=== PATIENT | male | born 1940 | race Two or more races ===

== ENCOUNTER 2019-05-27 20:53 | Inpatient (IN) | payer MEDICARE, MEDICAID ==
[~2019-05-27] VITALS: Ht 177.8 cm; Wt 86.6 kg
[2019-05-27] MEDS ORDERED: ZOLPIDEM TARTRATE 5 MG TABLET PO PRN (21:00)
[2019-05-27] MEDS ORDERED: Z GUARD REMEDY 2 OZ OINT TP PRN (21:00)
[2019-05-27] MEDS ORDERED: MAG HYDROX/AL HYDROX/SIMETH 30 ML UDC PO PRN (21:00)
[2019-05-27] MEDS ORDERED: HYDROCODONE/APAP 5/325MG 1 EACH TABLET PO PRN (21:00)
[2019-05-27] MEDS ORDERED: ACETAMINOPHEN 325 MG TABLET PO PRN (21:00)
[2019-05-27] MEDS ORDERED: MAGNESIUM HYDROXIDE 30 ML UDC PO PRN (21:00)
[2019-05-27] MEDS ORDERED: ONDANSETRON HCL/PF 4 MG/2 ML VIAL IVP PRN (21:00)
--- NOTE | 2019-05-27 21:15 | NUR ---
RN OPENING NOTE PATIENT ARRIVED TO UNIT WITH FAMILY. PATIENT IS AMBULATORY WITH MINIMAL ASSISTANCE. A&O X4. ABLE TO MAKE NEEDS KNOWN. BREATHING IS EVEN AND NON LABORED. NO SOB NOTED AT THIS TIME. SMALL RED SCABS NOTED ON RIGHT LOWER LEG, OTHERWISE SKIN IS INTACT. BED IS LOWERED TO LOWEST POSITION FOR SAFETY. CALL LIGHT IS WITHIN EASY REACH. WILL CONTINUE TO MONITOR.
[2019-05-27 21:19] VITALS: BP 178/79
[2019-05-27] MEDS ORDERED: DEXTROSE 50%-WATER 50 ML DISP.SYRIN IV PRN (21:30)
[2019-05-27] MEDS: INSULIN REGULAR, HUMAN 100 UNIT/ML 3 ML VIAL SQ PRN (21:47)
[2019-05-27] MEDS ORDERED: BLOOD SUGAR DIAGNOSTIC 1 EACH STRIP IN STA (21:48)
[2019-05-27 21:49] LABS: BASOPHILS # (AUTO) 0.1 /CMM (0.0-0.2); BASOPHILS % (AUTO) 0.9 % (0.0-2.0); EOSINOPHILS % (AUTO) 3.6 % (0.0-6.0); HEMATOCRIT 39 % (39-51); HEMOGLOBIN 13.2 g/dL (13.5-17.5); LYMPHOCYTES # (AUTO) 1.6 /CMM (0.8-4.8); LYMPHOCYTES % (AUTO) 22.9 % (20.0-44.0); MEAN CORPUSCULAR HGB CONC 33 g/dl (31.0-36.0); MEAN CORPUSCULAR VOLUME 86 fL (80-96); MONOCYTES # (AUTO) 0.5 /CMM (0.1-1.30); MONOCYTES % (AUTO) 7.7 % (2.0-12.0); NEUTROPHILS # (AUTO) 4.6 /CMM (1.8-8.9); NEUTROPHILS % (AUTO) 64.9 % (43.0-81.0); PLATELET COUNT (AUTO) 211 /CMM (150-450); RED BLOOD CELL COUNT(AUTO) 4.56 MIL/uL (4.5-6.0); WHITE BLOOD COUNT (AUTO) 7.1 K/uL (4.3-11.0)
[2019-05-27] MEDS ORDERED: BLOOD SUGAR DIAGNOSTIC 1 EACH STRIP IN SCH (22:00)
[2019-05-27 22:10] LABS: ALBUMIN 3.4 g/dL (3.4-5.0); BILIRUBIN,TOTAL 0.3 mg/dL (0.2-1.0); CALCIUM, SERUM 8.7 mg/dL (8.5-10.1); CREATININE 1.2 mg/dL (0.6-1.3); POTASSIUM 4.9 mmol/L (3.5-5.1); TOTAL PROTEIN, SERUM 6.7 g/dL (6.4-8.2)
[2019-05-27 22:31] LABS: THYROID STIMULATING HORMONE 4.219 uIU/mL (0.358-3.74)
[2019-05-28] MEDS ORDERED: BISACODYL (5 MG) 5 MG TABLET.DR PO PRN
[2019-05-28] MEDS ORDERED: BLOOD SUGAR DIAGNOSTIC 1 EACH STRIP IN SCH
[2019-05-28] MEDS ORDERED: SENNOSIDES 8.6 MG TABLET PO PRN
[2019-05-28] MEDS: BLOOD SUGAR DIAGNOSTIC 1 EACH STRIP IN SCH ×3 (00:20→12:39)
[2019-05-28] MEDS: INSULIN REGULAR, HUMAN 100 UNIT/ML 3 ML VIAL SQ PRN ×2 (00:23→12:41)
[2019-05-28] MEDS ORDERED: ICOS1CAP PO (01:51)
[2019-05-28] MEDS ORDERED: PITA4TAB PO (01:55)
[2019-05-28] MEDS ORDERED: ESOM40CA PO (02:21)
[2019-05-28] MEDS ORDERED: RAMI10CA69 PO (02:45)
[2019-05-28] MEDS ORDERED: GABA-532 PO (03:35)
[2019-05-28] MEDS ORDERED: AMLO2.5T4 PO (03:39)
[2019-05-28] MEDS ORDERED: ASPI-1152 PO (03:41)
[2019-05-28] MEDS ORDERED: SENN-168 PO (03:42)
[2019-05-28] MEDS ORDERED: CLOP75TA15 PO (03:47)
[2019-05-28] MEDS ORDERED: BISA-79 PO (03:49)
[2019-05-28] MEDS ORDERED: CHOL200026 PO ×2 (03:51→03:54)
[2019-05-28 04:00] VITALS: BP 151/68
--- NOTE | 2019-05-28 05:30 | NUR ---
RN NOTE BLOOD SUGAR IS 124 MG/DL AT THIS TIME. NO INSULIN COVERAGE PER SLIDING SCALE. WILL CONTINUE TO MONITOR.
--- NOTE | 2019-05-28 06:47 | NUR ---
ERASTO RN CLOSING NOTE PATIENT IS IN BED RESTING. BREATHING IS EVEN AND NON LABORED. NO SOB NOTED. A&O X4. IN NO APPARENT DISTRESS NOTED. BED IS LOWERED TO LOWEST POSITION AND LOCKED FOR SAFETY. PATIENT IS KEPT CLEAN, DRY, AND COMFORTABLE. CALL LIGHT IS WITHIN EASY REACH. WILL ENDORSE TO AM SHIFT RN FOR ELVA.
[2019-05-28 07:32] LABS: BASOPHILS % (AUTO) 0.8 % (0.0-2.0); EOSINOPHILS % (AUTO) 4.4 % (0.0-6.0); HEMATOCRIT 41 % (39-51); HEMOGLOBIN 13.9 g/dL (13.5-17.5); LYMPHOCYTES # (AUTO) 1.4 /CMM (0.8-4.8); LYMPHOCYTES % (AUTO) 22.6 % (20.0-44.0); MEAN CORPUSCULAR HGB CONC 34 g/dl (31.0-36.0); MEAN CORPUSCULAR VOLUME 85 fL (80-96); MONOCYTES # (AUTO) 0.5 /CMM (0.1-1.30); MONOCYTES % (AUTO) 8.5 % (2.0-12.0); NEUTROPHILS % (AUTO) 63.7 % (43.0-81.0); PLATELET COUNT (AUTO) 207 /CMM (150-450); RED BLOOD CELL COUNT(AUTO) 4.76 MIL/uL (4.5-6.0); WHITE BLOOD COUNT (AUTO) 6.3 K/uL (4.3-11.0)
[2019-05-28 07:47] LABS: CALCIUM, SERUM 8.9 mg/dL (8.5-10.1); PHOSPHORUS 4.3 mg/dL (2.5-4.9); POTASSIUM 4.8 mmol/L (3.5-5.1)
[2019-05-28 08:00] VITALS: BP 160/57
[2019-05-28] MEDS: GABAPENTIN 100 MG CAPSULE PO SCH ×2 (08:38→12:45)
[2019-05-28] MEDS ORDERED: RAMIPRIL 5 MG CAPSULE PO SCH ×2 (09:00)
[2019-05-28] MEDS ORDERED: CHOLECALCIFEROL 1,000 UNIT TABLET (VIT D3) PO SCH (09:00)
[2019-05-28] MEDS ORDERED: CLOPIDOGREL BISULFATE 75 MG TABLET PO SCH ×2 (09:00)
[2019-05-28] MEDS ORDERED: AMLODIPINE BESYLATE 2.5 MG TABLET PO SCH (09:00)
[2019-05-28] MEDS ORDERED: ASPIRIN EC 81 MG TABLET.DR PO SCH ×2 (09:00)
[2019-05-28] MEDS ORDERED: GABAPENTIN 100 MG CAPSULE PO SCH (09:00)
[2019-05-28] MEDS ORDERED: ATORVASTATIN 40 MG TABLET PO SCH (10:00)
[2019-05-28] MEDS ORDERED: METOPROLOL TARTRATE 50 MG TABLET PO SCH (12:00)
[2019-05-28 12:44] VITALS: BP 135/68
[2019-05-28] MEDS ORDERED: DOXA1TAB17 PO (12:50)
[2019-05-28] MEDS ORDERED: INSU100I30 SQ (12:50)
[2019-05-28] MEDS ORDERED: RAMI5CAP30 PO (12:50)
--- NOTE | 2019-05-28 13:29 | NUR ---
RN NOTES PATIENT HAS BEEN DISCHARGED FROM THE UNIT. HE LEFT IN STABLE CONDITION, NO IV SITE, ID BAND WAS REMOVED. BELONGINGS LIST WAS CHECKED OFF, EXIT CARE WAS USED DURING DC PROCESS. PT AND FAMILY VERBALIZED UNDERSTANDING OF DC TEACHING. NO ACUTE CHANGES OCCURRED THROUGHOUT HIS STAY
[2019-05-28] MEDS ORDERED: DOXAZOSIN MESYLATE (1 MG) 1 MG TABLET PO SCH (22:00)
== END 2019-05-28 13:10 | disposition home or self-care (01) | DRG 305 ==
LOC: TELE1 20:53 → MEDSG1 21:07
PROVIDERS: ADMIT Family Medicine; ATTEND Family Medicine
DX: I16.0 Hypertensive urgency (principal); E11.65 Type 2 diabetes mellitus with hyperglycemia; E78.5 Hyperlipidemia, unspecified; E11.42 Type 2 diabetes mellitus with diabetic polyneuropathy; I25.10 Atherosclerotic heart disease of native coronary artery without angina pectoris; K21.9 Gastro-esophageal reflux disease without esophagitis; Z83.3 Family history of diabetes mellitus; Z86.73 Personal history of transient ischemic attack (TIA), and cerebral infarction without residual deficits; Z79.4 Long term (current) use of insulin; Z82.49 Family history of ischemic heart disease and other diseases of the circulatory system; I10 Essential (primary) hypertension
CPT/HCPCS: 36415; 70551-TC; 80048-TC; 80053-TC; 80061-TC; 82962-TC; 83735-TC; 83880; 84100-TC; 84443-TC; 84484-TC; 85025-TC; 85652-TC; 85730-TC; 87081-TC; 93307-TC; 93880-TC; 97116-TC; 97530-TC; G0378; J1815